=== PATIENT | female | born 1985 | race Caucasian/White ===

== ENCOUNTER 2017-08-11 15:15 | Emergency (ER) | payer OTHER ==
[~2017-08-11] VITALS: Ht 157.5 cm; Wt 74.8 kg
[~2017-08-11 15:15] MED LIST: ADDERALL 20 MG20 M1 PO; AMBIEN 10 MG TA10 MG PO; AMITRIPTYLINE H50 M2 GT; CYMBALTA30 MG PO; CYMBALTA60 MG PO; DILAUDID 4 MG TA4 M1 PO; HYDROXYZINE HCL25 M1 PO; LORTAB 5 MG/5001 TAB PO; NORCO 5-325 TA1 EACH PO; NORINYL PO; PHENERGAN 25 MG25 M1 PO; PREDNISONE 20 M20 MG PO; PROTONIX40 M2 PO; TOPAMAX; TOPROL XL25 MG PO; TRAMADOL 50 MG50 MG PO; VITAMIN D400 UNI1 PO; ZOFRAN ODT4 MG PO
[2017-08-11] MEDS ORDERED: CYCLOBENZAPRINE5 MG PO (15:24)
[2017-08-11] MEDS ORDERED: BUTALB-APAP-CA1 EACH PO (15:25)
[2017-08-11 15:48] LABS: ABSOLUTE BASOPHILS 0.1 thou/uL (0.0-0.2); ABSOLUTE EOSINOPHILS 0.1 thou/uL (0.0-0.7); ABSOLUTE LYMPHOCYTES 2.5 thou/uL (0.8-5.3); ABSOLUTE MONOCYTES 0.6 thou/uL (0.0-1.2); ABSOLUTE NEUTROPHILS 6.5 thou/uL (1.6-8.1); BASOPHILS 0.7 %; EOSINOPHILS 1.2 %; HEMATOCRIT 42.7 % (37.0-47.0); HEMOGLOBIN 14.1 gm/dL (12.0-15.0); LYMPHOCYTES 25.4 %; MCH 27.1 pg (26.0-34.0); MCV 82.3 fL (80.0-100.0); MONOCYTES 5.8 %; MPV 7.2 fl. (7.2-11.1); NUCLEATED RBCS 0 /100WBC; PLATELET COUNT* 427 thou/uL (150-400); POLYS 66.9 %; RBC 5.19 mil/uL (4.20-5.00); RDW-CV 15.1 % (10.5-14.5); WBC 9.7 thou/uL (4.0-11.0)
[2017-08-11 15:55] LABS: CREATININE 0.8 mg/dL (0.6-1.3); POTASSIUM 3.6 mmol/L (3.5-5.1)
[2017-08-11 15:56] LABS: APTT 35.6 Seconds (25.0-31.3)
[2017-08-11 16:00] LABS: ALBUMIN 3.8 g/dL (3.4-5.0); TOTAL BILIRUBIN 0.4 mg/dL (<0.1-1.0); TOTAL PROTEIN 8.2 g/dL (6.4-8.2)
[2017-08-11 16:51] VITALS: BP 122/79
== END 2017-08-11 16:51 | disposition home or self-care (01) ==
LOC: M.ERS 15:15
PROVIDERS: Nurse Practitioner Family
DX: G43.909 Migraine, unspecified, not intractable, without status migrainosus (principal); R09.81 Nasal congestion; Z88.8 Allergy status to other drugs, medicaments and biological substances